=== PATIENT | female | born 1985 | race Caucasian/White ===

== ENCOUNTER 2019-10-09 20:20 | Emergency (ER) | payer OTHER ==
[~2019-10-09] VITALS: Ht 160 cm; Wt 56.7 kg
[2019-10-09] MEDS ORDERED: LEVAQUIN500 MG (20:30)
== END 2019-10-10 00:13 | disposition home or self-care (01) ==
LOC: ER 20:20
DX: N83.02 Follicular cyst of left ovary (principal); N83.01 Follicular cyst of right ovary

== ENCOUNTER 2019-12-12 09:47 | Outpatient (CLI) | payer OTHER ==
[~2019-12-12 09:47] MED LIST: LEVAQUIN500 MG
== END 2019-12-12 09:49 | disposition home or self-care (01) ==
LOC: SONOGRAMA 09:47
DX: N83.291 Other ovarian cyst, right side (principal); N83.292 Other ovarian cyst, left side

== ENCOUNTER 2019-12-25 09:32 | Outpatient (CLI) | payer OTHER | END 2019-12-25 09:34 | disposition home or self-care (01) | LOC: RX STUDY 09:32 | DX: E28.8 Other ovarian dysfunction (principal) ==

== ENCOUNTER 2020-03-20 10:19 | Emergency (ER) | payer OTHER ==
[~2020-03-20] VITALS: Ht 165.1 cm; Wt 59.9 kg
== END 2020-03-20 17:22 | disposition home or self-care (01) ==
LOC: ER 10:19
DX: N83.292 Other ovarian cyst, left side (principal); N92.1 Excessive and frequent menstruation with irregular cycle

== ENCOUNTER 2021-08-25 08:48 | Outpatient (CLI) | payer OTHER | END 2021-08-25 08:55 | disposition home or self-care (01) | LOC: RX STUDY 08:48 → SONOGRAMA 08:48 → RX STUDY 08:55 | PROVIDERS: ATTEND Obstetrics & Gynecology | DX: Z31.41 Encounter for fertility testing (principal); N92.6 Irregular menstruation, unspecified ==